=== PATIENT | female | born 1940 | race Caucasian/White ===

== ENCOUNTER 2021-04-27 02:11 | Emergency (ER) | payer MEDICARE, OTHER ==
[2021-04-27 02:29] VITALS: BP 113/51; PULSE 116
--- NOTE | 2021-04-27 02:55 | EDM.PDOC ---
ED HPI GENERAL MEDICAL PROBLEM - General Chief Complaint: General Stated Complaint: RIGHT SIDE ABD PAIN Time Seen by Provider: 04/27/21 02:35 Source of Information: Reports: Patient, Family History Limitations: Reports: No Limitations - History of Present Illness INITIAL COMMENTS - FREE TEXT/NARRATIVE: 80-year-old female with a localized pain in her right anterior chest wall from coughing, she has had a bad cough for the past 5 days. She was seen in the clinic and checked for Covid which was negative. No fevers or chills, no productive cough. She has been vaccinated for Covid. She does have a history of reactive airways and has an inhaler at home. Tonight she developed some intense pain in the right anterior chest just above the abdomen, it was so bad she felt she needed to come in but none now feels better. There is increased pain with breathing or coughing. She does not feel short of breath. Onset: Gradual Duration: Day(s): (5 days) Location: Reports: Chest (Right side) Quality: Reports: Sharp Worsens with: Reports: Other (Coughing or breathing causes increased pain), Movement Associated Symptoms: Reports: Cough, Fever/Chills, Malaise, Shortness of Breath. Denies: Nausea/Vomiting Right Upper Abdomen Pain Score (Numeric/FACES): 5 - Related Data Allergies Allergy/AdvReac Type Severity Reaction Status Date / Time amoxicillin [Amoxicillin] Allergy Intermediate Rash Verified 06/02/13 06:44 hydromorphone HCl Allergy Nausea Verified 06/03/13 08:50 [From Dilaudid] Sulfa (Sulfonamide Allergy Cannot Verified 06/02/13 06:44 Antibiotics) Remember Home Meds: Home Meds Magnesium 1 tab PO TID 01/12/13 [History] Calcium Carbonate [Calcium] 250 mg PO DAILY 05/30/13 [History] Cholecalciferol (Vitamin D3) [Vitamin D3] 2,000 unit PO DAILY 05/30/13 [History] Magnesium Hydroxide [Milk of Magnesia Concentrated] 10 ml PO DAILY PRN #10 ml 06/03/13 [Rx] Albuterol Sulfate [Albuterol Sulfate Hfa] 2 puff INH ASDIRECTED 04/27/21 [History] Past Medical History HEENT History: Reports: Impaired Vision, Other (See Below) Other HEENT History: 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 Respiratory History: Reports: Bronchitis, Recurrent [employer] History: Reports: Musculoskeletal History: Reports: Other (See Below) Other Musculoskeletal History: R should pain Neurological History: Reports: Other (See Below) Other Neuro History: memory issues - Infectious Disease History Infectious Disease History: Reports: Chicken Pox - Past Surgical History Head Surgeries/Procedures: Reports: Shunt GI Surgical History: Reports: Cholecystectomy Social & Family History - Tobacco Use Tobacco Use Status *Q: Current Status Unknown - Caffeine Use Caffeine Use: Reports: Coffee - Recreational Drug Use Recreational Drug Use: No ED ROS GENERAL - Review of Systems Review Of Systems: See Below Constitutional: Reports: Fever, Chills, Malaise HEENT: Denies: Rhinitis, Throat Pain Respiratory: Reports: Shortness of Breath, Cough. Denies: Sputum Cardiovascular: Reports: Chest Pain (Very localized right anterior chest wall pain) GI/Abdominal: Reports: No Symptoms : Reports: No Symptoms Skin: Reports: No Symptoms Neurological: Reports: No Symptoms Psychiatric: Reports: No Symptoms ED EXAM, GENERAL - Physical Exam Exam: See Below Free Text/Narrative:: She does have a fairly persistent dry cough Exam Limited By: No Limitations General Appearance: Alert, No Apparent Distress Eye Exam: Bilateral Eye: Normal Inspection Head: Atraumatic Neck: Non-Tender. No: Lymphadenopathy (R), Lymphadenopathy (L) Respiratory/Chest: No Respiratory Distress, Lungs Clear, Other (Patient did have an area tenderness on the lower right costochondral junction with direct palpation, no increased pain with lateral compression. No rash over the painful area) Cardiovascular: Regular Rate, Rhythm, Tachycardia (Mild tachycardia) GI/Abdominal: Soft, Non-Tender Extremities: No Pedal Edema Neurological: Alert, Oriented Psychiatric: Normal Affect, Normal Mood Skin Exam: Warm, Dry Course - Vital Signs Last Recorded V/S: Last Vital Signs Temp 97.5 F 04/27/21 02:27 Pulse 116 H 04/27/21 02:27 Resp 16 04/27/21 02:27 BP 113/51 L 04/27/21 02:27 Pulse Ox 95 04/27/21 02:27 - Orders/Labs/Meds Orders: Active Orders 24 hr Category Date Time Status Chest 2V [CR] Routine Exams 04/27/21 02:51 Taken Isolation [COMM] Stat Oth 04/27/21 02:51 Ordered Labs: Laboratory Tests 04/27/21 Range/Units 02:56 Influenza Type A RNA Negative (NEGATIVE) RSV RNA ([facility]) Negative (NEGATIVE) Influenza Type B RNA Negative (NEGATIVE) SARS-CoV-2 RNA ([facility]) Negative (NEGATIVE) - Re-Assessments/Exams Free Text/Narrative Re-Assessment/Exam: 04/27/21 02:55 This patient very likely has a viral bronchitis, now a local area of costochondritis from coughing. A 2 view chest x-ray was ordered as well as a 4 Plex viral study. She will likely benefit from the Medrol Dosepak if the chest x-ray is negative. 04/27/21 03:24 Chest x-ray showed some changes of COPD but no acute findings. 04/27/21 03:35 Viral studies were negative, patient will be discharged with a Medrol Dosepak and 6 hydrocodone for extra pain control. She could return in 2 or 3 days if not improving. Departure - Departure Time of Disposition: 03:51 Disposition: Home, Self-Care 01 Clinical Impression: Viral bronchitis, Acute costochondritis - Discharge Information Instructions: Costochondritis, [id number] Referrals: Alex Conrad MD [Primary Care Provider] - Forms: ED Department Discharge Care Plan Goals: Take Medrol Dosepak as directed over the next several days. Continue your nebulizer as needed and use water to stronger pain medications if needed especially when trying to rest. Consider rechecking in 3 to 4 days if not improv ing satisfactorily, or return anytime if worsening or concerns, especially difficulty breathing. Sepsis Event Note (ED) - Evaluation Sepsis Screening Result: No Definite Risk - Focused Exam Vital Signs: Vital Signs Temp Pulse Resp BP Pulse Ox 04/27/21 02:27 97.5 F 116 H 16 113/51 L 95 - My Orders Last 24 Hours: My Active Orders 04/27/21 02:51 Chest 2V [CR] Routine Isolation [COMM] Stat - Assessment/Plan Last 24 Hours: My Active Orders 04/27/21 02:51 Chest 2V [CR] Routine Isolation [COMM] Stat
[2021-04-27 03:32] LABS: CORONAVIRUS COVID-19 NAA NEGATIVE (NEGATIVE)
--- NOTE | 2021-04-27 09:48 | CR ---
CHEST: 2 view CLINICAL HISTORY:Dyspnea COMPARISON:2013 FINDINGS: Heart size and pulmonary vascular are normal. Lungs are hyperaerated. There is some streaky infrahilar density bilaterally, greater on the right. There is some generalized increase of the interstitial markings. No effusions are seen IMPRESSION: Lungs are hyperaerated. There is generalized increase in lung markings. This is suspect for a pneumonitis
== END 2021-04-27 03:52 | disposition home or self-care (01) ==
LOC: JP.ED 02:11
DX: J20.8 Acute bronchitis due to other specified organisms (principal); M94.0 Chondrocostal junction syndrome [Tietze]; Z88.0 Allergy status to penicillin; Z88.5 Allergy status to narcotic agent; Z88.2 Allergy status to sulfonamides; Z79.899 Other long term (current) drug therapy; Z20.822 Contact with and (suspected) exposure to COVID-19
CPT/HCPCS: 0241U; 71046; 99285

== ENCOUNTER 2024-11-15 11:00 | Emergency (ER) | payer MEDICARE, OTHER ==
[2024-11-15 11:41] VITALS: BP 155/70; PULSE 93
[2024-11-15] MEDS: Acetaminophen/HYDROcodone 325-5 MG Tab PO ONE (13:37)
== END 2024-11-15 13:42 | disposition home or self-care (01) ==
LOC: JP.ED 11:00
DX: S80.11XA Contusion of right lower leg, initial encounter (principal); Z88.0 Allergy status to penicillin; Z88.2 Allergy status to sulfonamides; Z88.8 Allergy status to other drugs, medicaments and biological substances; Z79.899 Other long term (current) drug therapy; Z90.49 Acquired absence of other specified parts of digestive tract; W19.XXXA Unspecified fall, initial encounter
CPT/HCPCS: 73590; 99283; A9270